=== PATIENT | female | born 1995 | race African-American/Black ===

== ENCOUNTER 2024-11-15 18:28 | Emergency (ER) | payer OTHER, SELFPAY ==
[2024-11-15 18:36] VITALS: BP 156/105
[2024-11-15 20:33] VITALS: BP 132/89
--- NOTE | 2024-11-15 21:39 | ED.GENMED ---
History of Present Illness
General
Chief Complaint: Crisis Evaluation
Source: patient
Exam Limitations: none
Time Seen by Provider: 11/15/24 20:01
Nursing documentation reviewed up to this point in time: agreed with
History of Present Illness
History of Present Illness:
Patient is a 29-year-old female who presents to the ER for evaluation. Patient feels that she is become paranoid. She is not able to distinguish real thoughts from thoughts that are not real. She feels that people are trying to follow her and
possibly harm her. She has a history of PTSD but no other diagnosis. She does have a therapist. Patient has no physical complaints. Patient denies any suicidal /homicidal thoughts.
Review of Systems
Review of Systems
Allergies reviewed?: Yes
All Other Systems: ROS reviewed and negative except as documented in HPI and ROS
Constitutional: Reports no symptoms
Respiratory: Reports no symptoms
Cardiac: Reports no symptoms
ABD/GI: Reports no symptoms
Musculoskeletal: Reports no symptoms
Skin: Reports no symptoms
Neurological: Reports no symptoms
Psychiatric: Denies suicidal or hallucinations
Phy Exam
General Physical Exam
General Presentation: no apparent distress
General age: appears stated age
General Skin: warm and dry
General Habitus: normal
General Mental: alert
General Hydration: appears well hydrated
Neurological Exam
Neurological Exam: alert and oriented x3
Musculoskeletal Exam
Musculoskeletal Exam: full ROM
Skin Exam
Skin Exam: normal color and warm/dry
Psychiatric Exam
Psychiatric Exam: other (Flat affect)
Course
Orders/Labs/Results
Orders:
Orders
11/15/24 19:59
Crisis Consult Urgent
Reason for Consult: hearing voices
11/15/24 23:34
HCG, Serum Qualitative Screen Urgent
Test Result ONCE
11/16/24 02:39
Lorazepam [Ativan] 0.5 mg PO NOW STA
11/16/24 03:06
Complete Blood Count/With Diff Urgent
Comprehensive Metabolic Panel Urgent
11/16/24 13:09
Fentanyl, Urine Urgent
Urinalysis Reflex To Culture Urgent
Date Specimen was Collected: 11/16/24
Time Specimen was Collected: 11:26
Urine Drug Abuse Screen Urgent
Date Specimen was Collected: 11/16/24
Time Specimen was Collected: 11:26
Urine Microscopic Reflex Cult Urgent
Abnormal Lab Results
11/16/24 11/16/24
03:06 13:09
RBC 3.68 L 10^6/uL
(4.20-5.40)
Hgb 11.7 L g/dL
(12.0-16.0)
Hct 33.2 L %
(37.0-47.0)
MCH 31.8 H pg
(27.0-31.0)
ALT 37 H U/L
(0-35)
Urine Ketones 3+ A
(Negative)
Urine Bacteria (Reflex) Few A
(Negative)
Urine Albumin (Reflex) 1+ A
(Neg - Trace)
U Benzodiazepines Scrn Positive H
(Negative)
U Marijuana (THC) Screen Positive H
(Negative)
11/16/24 03:06
11/16/24 03:06
Vital Signs
Initial and Last Documented VS:
Initial Vital Signs
Temp Pulse Resp BP Pulse Ox
98.2 F 103 16 156/105 100
11/15/24 18:36 11/15/24 18:36 11/15/24 18:36 11/15/24 18:36 11/15/24 18:36
Last Documented Vital Signs
Temp Pulse Resp BP Pulse Ox
98.2 F 88 17 142/99 98
11/15/24 18:36 11/16/24 02:39 11/16/24 02:39 11/16/24 02:35 11/16/24 02:39
MDM/Problems Addressed
MDM/Problems Addressed:
Patient is a 29-year-old female who presents to the ER for evaluation. She feels very paranoid she is afraid to leave her house she is afraid someone is going to harm her. She was evaluated by crisis and does have a therapist at home but feels
that she needs to go inpatient. As per crisis evaluated patient this behavior was triggered after patient's brother was murdered. Patient will be placed inpatient
*Critical Care Note
Total Time (30-74mins, 75-104mins- exclusive of procedures): Not Applicable
ED Attending Note
-
Portions of this chart may have been created with voice recognition software.� Occasional wrong word or��sound alike� substitutions may have occurred due to the inherent limitations of voice recognition software.
Discharge Plan
Departure
Patient Disposition: Psych Facility
Date of Disposition: 11/15/24
Time of Disposition: 23:35
Patient with high blood pressure during this ER visit?: Yes
Condition: Fair
Covid-19: Not Applicable
Discharge Problem:
Paranoid
Prescriptions:
No Action
No Current Medications
0
Interventions
Interventions:
*Risk Screen - Suicide Last Done: 11/15/24 18:36
*General Assessment Last Done: 11/15/24 20:07
*Neglect/Abuse Screening Last Done: 11/15/24 18:36
*ED- Fall Risk Assessment Last Done: 11/15/24 20:07
*ED COVID-19 Vaccine History Last Done: 11/15/24 20:07
*Nursing Disposition Last Done: 11/16/24 14:18
ED-Psychological Assessment Last Done: 11/15/24 20:07
Discharge Date and Time
Discharge Date/Time: 11/16/24 14:30
Print Language: BULGARIAN
[2024-11-15 23:56] VITALS: BP 135/88
[2024-11-15 23:57] VITALS: BP 135/88
[2024-11-16 02:35] VITALS: BP 142/99
[2024-11-16] MEDS: ATIVAN 0.5 MG PO (02:45)
[2024-11-16 03:14] LABS: % Basophils 0.9 % (0-2); % Eosinophils 1.2 % (0-6); % Immature Granulocytes 0.2 % (0-0.5); % Lymphocytes 40.8 % (20.5-51.1); % Monocytes 7.9 % (1.7-9.3); Absolute Basophils 0.1 10^3/uL (0-0.2); Absolute Eosinophils 0.1 10^3/uL (0-0.7); Absolute Lymphocytes 2.7 10^3/uL (1.2-3.4); Absolute Monocytes 0.5 10^3/uL (0.1-0.6); Absolute Neutrophils 3.2 10^3/uL (1.4-6.5); Hematocrit 33.2 % (37.0-47.0); Hemoglobin 11.7 g/dL (12.0-16.0); Mean Corp Hgb Conc. 35.2 g/dL (33.0-37.0); Mean Corpuscular Hgb 31.8 pg (27.0-31.0); Mean Corpuscular Volume 90.2 fL (81.0-99.0); Mean Platelet Volume 9.7 fL (7.4-10.4); Nucleated Red Blood Cells % 0 %; Platelet Count 344 10^3/uL (130-400); Red Blood Cell Count 3.68 10^6/uL (4.20-5.40); Red Cell Dist. Width 12.1 % (11.5-14.5); White Blood Cell Count 6.6 10^3/uL (4.8-10.8)
[2024-11-16 03:25] LABS: HCG, Serum Qualitative Screen Negative
[2024-11-16 03:29] LABS: ALT (SGPT) 37 U/L (0-35); AST (SGOT) 24 U/L (14-36); Albumin 4.2 g/dl (3.5-5.0); Alkaline Phosphatase 63 U/L (38-126); Blood Urea Nitrogen 13 mg/dl (7-17); Calcium 9.5 mg/dl (8.4-10.2); Carbon Dioxide 24 mmol/L (22-30); Chloride 106 mmol/L (98-107); Glucose 93 mg/dl (70-99); Potassium 3.6 mmol/L (3.5-5.1); Sodium 139 mmol/L (135-145); Total Bilirubin 0.7 mg/dl (0.2-1.3); Total Protein 6.8 g/dl (6.3-8.2); eGFR > 60.00
--- NOTE | 2024-11-16 07:37 | EDRN ---
the pt was received from previous night nurse RN, the pt is resting in stretcher in the lowest position, side rails up x2, call perez within reach, HOB slightly elevated, no s/s of distress, no c/o pain, the pt is refusing to have this RN obtain
vital signs, the pt stated, 'How many times do you people have to take my blood pressure this is ridiculous, i don't want my blood pressure taken again, just let me sleep', awaiting for transport for the pt
[2024-11-16 13:25] LABS: Urine Albumin 1+ (Neg - Trace); Urine Bilirubin Negative (Negative); Urine Character Clear (Clear); Urine Color Yellow; Urine Glucose Negative (Negative); Urine Ketone 3+ (Negative); Urine Leukocyte Negative (Negative); Urine Nitrite Negative (Negative); Urine Occult Blood Negative (Negative); Urine Specific Gravity 1.025 (<1.030); Urine Urobilinogen Negative (Neg - 1+)
[2024-11-16 13:35] LABS: Urine Squamous Cell 26-30 /LPF (Few)
[2024-11-16 13:36] LABS: Urine Bacteria Few (Negative); Urine Red Blood Cell 0-2 /HPF (0-2)
[2024-11-16 14:05] LABS: Amphetamines Negative (Negative); Barbiturates Negative (Negative); Benzodiazepines Positive (Negative); Buprenorphine Negative (Negative); Cocaine Negative (Negative); Marijuana Positive (Negative); Methadone Negative (Negative); Methamphetamines Negative (Negative); Opiates Negative (Negative); Phencyclidine Negative (Negative); Tricyclic Antidepressants Negative (Negative)
[2024-11-16 14:20] LABS: Fentanyl, Urine Negative (Negative)
== END 2024-11-16 14:30 ==
LOC: EMR 18:28
PROVIDERS: Emergency Medicine; Nurse Practitioner; EMERGENCY PHYSICIAN Emergency Medicine
DX: F23 Brief psychotic disorder (principal); F43.10 Post-traumatic stress disorder, unspecified
CPT/HCPCS: 99285; 80053; 80306; 80307; 81003; 81015; 84703; 85025